=== PATIENT | female | born 1970 | race Caucasian/White ===

== ENCOUNTER 2018-02-26 23:46 | Emergency (ER) | payer BC ==
[2018-02-27] MEDS ORDERED: NS 0.9% 1000 ML* 2,000 ML IV ONE (00:18)
[2018-02-27] MEDS ORDERED: Ketorolac INJ* 30 MG/ML 1 ML VIAL IV PUSH ONE (00:20)
[2018-02-27] MEDS ORDERED: Metoclopramide IV* 5 MG/ML 2 ML VIAL IV SLOW PU ONE (00:21)
[2018-02-27] MEDS ORDERED: diPHENhydraMINE PO* 50 MG PO ONE (00:21)
--- NOTE | 2018-02-27 00:34 | ED ---
Headache - HPI Summary HPI Summary: This patient is a 47 year old F presenting to [facility] with a chief complaint of TURK since earlier this evening. The patient rates the pain 8/10 in severity. Symptoms aggravated by bright lights. Symptoms alleviated by nothing. Patient reports photophobia, myalgia, sore throat, ear ache, nausea and vomiting. Patient denies fever, rhinorrhea, nasal congestion. 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 - History Of Current Complaint Chief Complaint: EDFluSymptoms Stated Complaint: GENERAL ILLNESS Time Seen by Provider: 02/27/18 00:04 Hx Obtained From: Patient Hx Last Menstrual Period: uterine ablasion Onset/Duration: Gradual Onset, Started hours ago, Still Present Initially Headache Was: Mild Currently Pain Is: Current Pain Scale(0-10)= - 8 Timing: Constant, Hours Aggravating Factor: Bright Lights Allevating Factors: Nothing Associated Signs And Symptoms: Nausea, Vomiting, Other (Noted In Comments) - myalgia, photophobia - Allergies/Home Medications Allergies/Adverse Reactions: Allergies Allergy/AdvReac Type Severity Reaction Status Date / Time cortisone Allergy Anaphylatic Verified 02/26/18 23:53 Shock Penicillins Allergy Anaphylatic Verified 02/26/18 23:53 Shock Sulfa (Sulfonamide Allergy Anaphylatic Verified 02/26/18 23:53 Antibiotics) Shock Home Medications: Home Medications LORazepam [Lorazepam] 1 mg PO BEDTIME PRN 02/26/18 [History Confirmed 02/26/18] PMH/Surg Hx/FS Hx/Imm Hx Endocrine/Hematology History: Reports: Hx Diabetes - HX OF NOT CURRENTLY. WAS DIET CONTROLLED. Dx in 2008. No rx. FBS 90-100, Autoimmune Disease - CBID Denies: Hx Anticoagulant Therapy, Hx Thyroid Disease Cardiovascular History: Denies: Hx Congestive Heart Failure, Hx Hypertension, Hx Pacemaker/ICD Respiratory History: Denies: Hx Asthma, Hx Chronic Obstructive Pulmonary Disease (COPD), Hx Lung Cancer, Other Respiratory Problems/Disorders GI History: Reports: Hx Urosepsis - She had a urinary tract stent put in six months after urosepsis. Denies: Hx Gall Bladder Disease, Hx Gastrointestinal Bleed, Hx Ulcer History: Reports: Hx Kidney Stones - She had the stone/urosepsis 2012 or 2013. She became Dr. Ann pt then., Other Problems/Disorders - Frequent UTI's Denies: Hx Renal Disease Sensory History: Denies: Hx Contacts or Glasses, Hx Hearing Aid Opthamlomology History: Denies: Hx Contacts or Glasses Neurological History: Denies: Hx Dementia, Hx Migraine, Hx Seizures, Hx Transient Ischemic Attacks (TIA) Psychiatric History: Reports: Hx Anxiety - NOT CURRENTLY Denies: Hx Eating Disorder, Hx Depression, Hx Schizophrenia, Hx Bipolar Disorder, Hx of Violent Episodes Against Others, Hx Substance Abuse - Surgical History Surgery Procedure, Year, and Place: Endometrial Ablation 2013, [place]. Tubal Ligation. 1995 , 1987 1993 1995. Appendectomy 1986. Tonsillectomy 1974. HERNIA REPAIR AN Hx Anesthesia Reactions: No Infectious Disease History: No Infectious Disease History: Denies: Hx Hepatitis, Hx Human Immunodeficiency Virus (HIV), Traveled Outside the [place] in Last 30 Days - Family History Known Family History: Negative: Hypertension - Social History Alcohol Use: None Substance Use Type: Reports: None Smoking Status (MU): Never Smoked Tobacco Review of Systems Negative: Fever Positive: Photophobia Positive: Sore Throat, Ear Ache. Negative: Nasal Discharge Positive: Vomiting, Nausea Positive: Myalgia Positive: Headache All Other Systems Reviewed And Are Negative: Yes Physical Exam - Summary Physical Exam Summary: VITAL SIGNS: Reviewed. GENERAL: Patient is a well-developed and nourished FEMALE who is lying comfortable in the stretcher. Patient is not in any acute respiratory distress. HEAD AND FACE: No signs of trauma. No ecchymosis, hematomas or skull depressions. No sinus tenderness. EYES: PERRLA, EOMI x 2, No injected conjunctiva, no nystagmus. EARS: Hearing grossly intact. Ear canals and tympanic membranes are within normal limits. MOUTH: Oropharynx within normal limits. NECK: Supple, trachea is midline, no adenopathy, no JVD, no carotid bruit, no c- spine tenderness, neck with full ROM. CHEST: Symmetric, no tenderness at palpation LUNGS: Clear to auscultation bilaterally. No wheezing or crackles. CVS: Regular rate and rhythm, S1 and S2 present, no murmurs or gallops appreciated. ABDOMEN: Soft, non-tender. No signs of distention. No rebound no guarding, and no masses palpated. Bowel sounds are normal. EXTREMITIES: FROM in all major joints, no edema, no cyanosis or clubbing. NEURO: Alert and oriented x 3. No acute neurological deficits. Speech is normal and follows commands. SKIN: Dry and warm Triage Information Reviewed: Yes Vital Signs On Initial Exam: Initial Vitals Temp Pulse Resp BP Pulse Ox 97.2 F 68 18 164/99 97 02/26/18 23:48 02/26/18 23:48 02/26/18 23:48 02/26/18 23:48 02/26/18 23:48 Vital Signs Reviewed: Yes Diagnostics - Vital Signs Vital Signs Temp Pulse Resp BP Pulse Ox 02/26/18 23:48 97.2 F 68 18 164/99 97 - Laboratory Result Diagrams: 02/27/18 00:31 02/27/18 00:31 Lab Statement: Any lab studies that have been ordered have been reviewed, and results considered in the medical decision making process. Headache Course/Dx - Course Course Of Treatment: This patient is a 47 year old F with hx CBID reporting TURK since earlier this evening. Patient reports photophobia, myalgia, nausea and vomiting. Test results with no significant abnormalities. In the ED course the patient was given IV fluids, Toradol, Benadryl, and Reglan. Patient will be discharged with follow up from primary care physician.The patient is agreeable with this plan. - Diagnoses Provider Diagnoses: Headache Discharge - Sign-Out/Discharge Documenting (check all that apply): Patient Departure - discharge home - Discharge Plan Condition: Stable Disposition: HOME Prescriptions: Ibuprofen TAB* [Motrin TAB* 800 MG] 800 mg PO Q6H PRN #30 tab PRN Reason: Headache Patient Education Materials: Acute Headache (ED) Referrals: Nickolas Garcia MD [Primary Care Provider] - 2 Days Additional Instructions: Follow up with primary care physician in 2-3 days. Return to the emergency department with any new or worsening symptoms. - Attestation Statements Document Initiated by Scribe: Yes Documenting Scribe: Zoe Vega Provider For Whom Scribe is Documenting (Include Credential): Gertrudis Ulloa MD Scribe Attestation: Zoe Rowland, scribed for Gertrudis Ulloa MD on 02/27/18 at 0220.
[2018-02-27 00:43] LABS: ABS Basophils 0.1 10^3/ul (0-0.2); ABS Eosinophils 0.2 10^3/ul (0-0.6); ABS Lymphocytes 2.7 10^3/ul (1.0-4.8); ABS Monocytes 0.6 10^3/ul (0-0.8); ABS Neutrophils 4.9 10^3/ul (1.5-7.7); ABS Nucleated RBC 0 10^3/ul; Eosinophil % 2.6 % (0-6); Hematocrit 40 % (35-47); Hemoglobin 13.9 g/dl (12.0-16.0); Lymphocyte % 32.1 % (25-47); Mean Corpuscular HGB Conc 35 g/dl (31-36); Mean Corpuscular Hemoglobin 31 pg (27-31); Mean Corpuscular Volume 90 fL (80-97); Mean Platelet Volume 8.2 fL (7.4-10.4); Nucleated Red Blood Cells % 0.3; Platelet Count 262 10^3/ul (150-450); Red Blood Count 4.49 10^6/ul (4.00-5.40); Red Cell Distribution Width 13 % (10.5-15); White Blood Count 8.6 10^3/ul (3.5-10.8)
[2018-02-27 01:00] LABS: Urine Appearance Clear; Urine Blood Negative (Negative); Urine Color Colorless; Urine Ketones Negative (Negative); Urine Protein Negative (Negative); Urine Specific Gravity 1.003 (1.010-1.030); Urine Urobilinogen Negative (Negative)
[2018-02-27 01:00] LABS: EGFR Non-African American 90.8 (>60)
[2018-02-27 02:32] VITALS: BP 158/98
== END 2018-02-27 02:30 | disposition home or self-care (01) ==
LOC: ED 23:46
DX: R51 Headache (principal); R11.2 Nausea with vomiting, unspecified; M79.10 Myalgia, unspecified site; H53.149 Visual discomfort, unspecified; F41.9 Anxiety disorder, unspecified; Z88.0 Allergy status to penicillin; Z88.2 Allergy status to sulfonamides; Z88.8 Allergy status to other drugs, medicaments and biological substances
CPT/HCPCS: 36415; 80053; 81003; 82550; 83735; 84702; 85025; 86140; 96374; 96375; 99283; A9270-GY; J1885; J2765